=== PATIENT | male | born 1950 | race Caucasian/White ===

== ENCOUNTER 2018-04-05 13:42 | Outpatient (CLI) | payer MEDICARE, BC ==
--- NOTE | 2018-04-05 16:08 | RAD ---
CHEST ONE VIEW: HISTORY: Congenital diverticulum. Reflux. FINDINGS: The exam was originally ordered as a barium swallow. Due to the patient's size and limited mobility, the exam was unable to be performed. At least 20 min utes was spent by radiology department personnel attempting to help and accommodate the patient for t he procedure. The patient was unable to stand on the platform for the exam or climb onto the table. A barium swallow was, therefore, not performed. The cardiac silhouette has a normal appearance. The pulmonary vasculature is accentuated by shallow inspiration. Mild atelectasis at the right lung base. No lobar consolidation, evidence of pneumotho rax, or free subdiaphragmatic gas. IMPRESSION: 1. Mild right basilar atelectasis. 2. Esophagram unable to be performed. POS: [facility]
== END 2018-04-05 13:43 | disposition home or self-care (01) ==
LOC: RAD 13:42
PROVIDERS: ATTEND Internal Medicine
DX: Q39.6 Congenital diverticulum of esophagus (principal); J98.11 Atelectasis
CPT/HCPCS: 71045

== ENCOUNTER 2018-08-15 13:08 | Outpatient (CLI) | payer MEDICARE, BC | END 2018-08-15 13:09 | disposition home or self-care (01) | PROVIDERS: ATTEND Internal Medicine | DX: R13.10 Dysphagia, unspecified (principal); R63.3 Feeding difficulties | CPT/HCPCS: 74230 ==

== ENCOUNTER 2020-06-04 01:08 | Inpatient (IN) | payer MEDICARE, BC ==
[2020-06-04] MEDS ORDERED: Labetalol HCl 100 MG/20 ML VIAL ONE (02:28)
[2020-06-04] MEDS ORDERED: VANCOMYCIN 2 GRAM/400 ML BAG 2 GM in Premix Bag 1 BAG IVPB SCH (03:00)
[2020-06-04] MEDS ORDERED: Cefepime 2 GM VIAL ONE ×2 (03:02→13:10)
[2020-06-04 07:00] LABS: Bacteria/HPF None Seen HPF (None Seen); Bilirubin 1+ (Negative); Blood, Urine 2+ (Negative); Clarity Turbid (Clear); Glucose, Urine (Dipstick) Normal (Negative); Ketone, Urine 10 mg/dL (Negative); Leukocyte Negative Leu/uL (Negative); Nitrite Negative (Negative); Protein, Urine (Dipstick) 50 mg/dL (Neg-Trace); RBC/HPF 21-50 HPF (0-3); Specific Gravity, Urine 1.033 (1.002-1.036); Squamous Epithelial 0-3 HPF (0-3); WBC/HPF 0-3 HPF (0-3); pH, Urine 5.5 (5.0-9.0)
[2020-06-04 07:03] LABS: ALT (SGPT) 15 U/L (8-55); AST (SGOT) 22 U/L (5-34); Albumin 2.9 g/dL (3.4-4.8); Alkaline Phosphatase 149 U/L (40-110); Anion Gap 15 mmol/L (10-20); BUN (Urea Nitrogen) 24 mg/dL (8.4-25.7); Bilirubin, Total 0.9 mg/dL (0.2-1.2); Calc. Creatinine Clearance 0 mL/min (70-130); Calcium 9.1 mg/dL (7.8-10.44); Carbon Dioxide 24 mmol/L (23-31); Chloride 103 mmol/L (98-107); Globulin 3.4 g/dL (2.4-3.5); Glucose 131 mg/dL (83-110); Lipase 18 U/L (8-78); Potassium 3.4 mmol/L (3.5-5.1); Protein, Total 6.3 g/dL (5.8-8.1); Sodium 139 mmol/L (136-145)
[2020-06-04] MEDS ORDERED: Ondansetron PF 4 MG/2 ML Vial IVP PRN (07:03)
[2020-06-04 07:20] LABS: #Eosinphils 0.1 thou/uL (0.0-0.7); #Lymphocytes 0.9 thou/uL (1.20-3.40); #Monocytes 0.9 thou/uL (0.11-0.59); #Neutrophils 12.3 thou/uL (1.40-6.50); %Eosinophils 0.9 % (0.0-10.0); %Lymphocytes 6.3 % (21.0-51.0); %Monocytes 6.3 % (0.0-10.0); %Neutrophils 86.4 % (42.0-75.0); Hemoglobin 13.2 g/dL (14.0-18.0); Mean Corpuscular Hemoglobin 31.4 pg (27.0-31.0); Mean Corpuscular Volume 94.9 fL (78.0-98.0); Mean Platelet Volume 6.5 fL (7.4-10.4); Platelet Count 398 thou/uL (130-400); RBC Distribution Width 13.9 % (11.5-14.5); White Blood Cell (WBC) Count 14.3 thou/uL (4.8-10.8)
[2020-06-04] MEDS ORDERED: Potassium Chloride 20 MEQ TAB PO SCH (07:30)
[2020-06-04 07:39] LABS: #Eosinphils 0.1 thou/uL (0.0-0.7); #Lymphocytes 0.9 thou/uL (1.20-3.40); #Monocytes 1.1 thou/uL (0.11-0.59); #Neutrophils 14.3 thou/uL (1.40-6.50); %Basophils 0.2 % (0.0-1.0); %Eosinophils 0.9 % (0.0-10.0); %Lymphocytes 5.1 % (21.0-51.0); %Monocytes 6.8 % (0.0-10.0); Hemoglobin 13.7 g/dL (14.0-18.0); Mean Corpuscular HGB CONC 33.6 g/dL (32.0-36.0); Mean Corpuscular Hemoglobin 31.5 pg (27.0-31.0); Mean Platelet Volume 6.3 fL (7.4-10.4); Platelet Count 424 thou/uL (130-400); RBC Distribution Width 13.9 % (11.5-14.5); Red Blood Cell (RBC) Count 4.34 mill/uL (4.70-6.10); White Blood Cell (WBC) Count 16.5 thou/uL (4.8-10.8)
[2020-06-04] MEDS ORDERED: cefTRIAXone\\ROCEPHIN 2 GM in Sodium Chloride 0.9% 100 ML IVPB SCH (08:00)
[2020-06-04] MEDS ORDERED: cefTRIAXone\\ROCEPHIN 2 GM VIAL ONE (08:27)
[2020-06-04] MEDS ORDERED: Potassium Chloride 20 MEQ TAB ONE (08:27)
[2020-06-04] MEDS ORDERED: Enoxaparin Sodium 40 MG/0.4 ML SYRINGE ONE (08:27)
[2020-06-04 08:28] LABS: Amphetamine Not Detected (NotDetected); Barbiturates Screen Not Detected (NotDetected); Benzodiazepine Screen Not Detected (NotDetected); Cocaine Metabolite Screen Not Detected (NotDetected); Medtox Control Line Valid? VALID (VALID); Medtox Reader # READER 1; Methadone Not Detected (NotDetected); Methamphetamine Not Detected (NotDetected); Opiate Screen Not Detected (NotDetected); Oxycodone Screen Not Detected (NotDetected); Phencyclidine (PCP) Not Detected (NotDetected); THC/Cannabinoid Screen Not Detected (NotDetected); Tricyclic Screen Not Detected (NotDetected)
[2020-06-04] MEDS ORDERED: Enoxaparin Sodium 40 MG/0.4 ML SYRINGE SC SCH (09:00)
[2020-06-04] MEDS ORDERED: Iopamidol-370 76% 500 ML 1 ML ONE (12:21)
[2020-06-04 12:43] LABS: SARS-CoV-2 PCR by NAA Not Detected (NotDetected)
[2020-06-04] MEDS: Lactated Ringer's 1,000 ML IV SCH ×2 (13:19→19:11)
[2020-06-04] MEDS: Cefepime 2 GM in Sodium Chloride 0.9% 100 ML IVPB SCH ×2 (13:20→20:11)
[2020-06-04 16:49] VITALS: BMI 58.6
[2020-06-04] MEDS: Enoxaparin Sodium 40 MG/0.4 ML SYRINGE SC SCH (20:12)
[2020-06-05] MEDS: Lactated Ringer's 1,000 ML IV SCH (01:05)
[2020-06-05] MEDS: VANCOMYCIN 2 GRAM/400 ML BAG 2 GM in Premix Bag 1 BAG IVPB SCH (02:26)
[2020-06-05] MEDS ORDERED: Ibuprofen 800 MG TAB PO SCH (03:00)
[2020-06-05] MEDS: Cefepime 2 GM in Sodium Chloride 0.9% 100 ML IVPB SCH ×3 (04:51→20:06)
[2020-06-05] MEDS: Enoxaparin Sodium 40 MG/0.4 ML SYRINGE SC SCH ×2 (08:50→20:13)
[2020-06-05] MEDS: Saccharomyces boulardii 250 MG CAP PO SCH (08:50)
[2020-06-05] MEDS ORDERED: Clotrimazole 1% Cream 15 GM TUBE TOP SCH (09:00)
[2020-06-05] MEDS ORDERED: Loratadine 10 MG TAB PO PRN (09:02)
[2020-06-05 09:18] LABS: Anion Gap 10 mmol/L (10-20); BUN (Urea Nitrogen) 17 mg/dL (8.4-25.7); Calc. Creatinine Clearance 240 mL/min (70-130); Carbon Dioxide 26 mmol/L (23-31); Chloride 108 mmol/L (98-107); Glucose 120 mg/dL (83-110); Potassium 3.5 mmol/L (3.5-5.1); Sodium 140 mmol/L (136-145)
[2020-06-05 09:26] LABS: Mean Corpuscular HGB CONC 32.1 g/dL (32.0-36.0); Mean Corpuscular Hemoglobin 30.7 pg (27.0-31.0); Mean Corpuscular Volume 95.7 fL (78.0-98.0); Mean Platelet Volume 6.5 fL (7.4-10.4); Platelet Count 356 thou/uL (130-400); Red Blood Cell (RBC) Count 3.89 mill/uL (4.70-6.10); White Blood Cell (WBC) Count 11.5 thou/uL (4.8-10.8)
[2020-06-05 09:27] LABS: Band 10 % (5-11); Eosinophils 2 % (0-10); Lymphocytes 6 % (21-51); MDiff Complete? YES; Metamyelocyte 1 % (0-0); Monocytes 8 % (0-10); Neutrophil 72 % (42-75); Platelet Morphology Comment Appears Adequate; Reactive Lymphocytes 1 % (0-10)
[2020-06-05] MEDS: Acetaminophen 325 MG TAB PO PRN ×2 (12:24→20:14)
[2020-06-05] MEDS ORDERED: Nystatin Powder 15 GM BOT TOP PRN (13:14)
[2020-06-06] MEDS: Ibuprofen 800 MG TAB PO PRN ×2 (00:27→14:47)
[2020-06-06] MEDS: hydrALAZINE 20 MG/ML VIAL SLOW IVP PRN ×4 (01:37→21:47)
[2020-06-06 02:59] LABS: #Eosinphils 0.6 thou/uL (0.0-0.7); #Lymphocytes 1.1 thou/uL (1.20-3.40); #Monocytes 0.7 thou/uL (0.11-0.59); #Neutrophils 8.2 thou/uL (1.40-6.50); %Basophils 0.1 % (0.0-1.0); %Eosinophils 5.2 % (0.0-10.0); %Lymphocytes 10.6 % (21.0-51.0); %Monocytes 6.7 % (0.0-10.0); %Neutrophils 77.4 % (42.0-75.0); Hemoglobin 12.4 g/dL (14.0-18.0); Mean Corpuscular Hemoglobin 30.7 pg (27.0-31.0); Mean Corpuscular Volume 96.2 fL (78.0-98.0); Mean Platelet Volume 6.2 fL (7.4-10.4); Platelet Count 368 thou/uL (130-400); RBC Distribution Width 14.1 % (11.5-14.5); Red Blood Cell (RBC) Count 4.02 mill/uL (4.70-6.10); White Blood Cell (WBC) Count 10.6 thou/uL (4.8-10.8)
[2020-06-06 03:15] LABS: Vancomycin, Trough 8.4 ug/mL
[2020-06-06 03:22] LABS: Anion Gap 12 mmol/L (10-20); BUN (Urea Nitrogen) 17 mg/dL (8.4-25.7); Calc. Creatinine Clearance 236 mL/min (70-130); Calcium 8.3 mg/dL (7.8-10.44); Carbon Dioxide 22 mmol/L (23-31); Chloride 109 mmol/L (98-107); Glucose 97 mg/dL (83-110); Potassium 3.6 mmol/L (3.5-5.1); Sodium 139 mmol/L (136-145)
[2020-06-06] MEDS: Cefepime 2 GM in Sodium Chloride 0.9% 100 ML IVPB SCH ×3 (03:37→21:46)
[2020-06-06] MEDS: VANCOMYCIN 2 GRAM/400 ML BAG 2 GM in Premix Bag 1 BAG IVPB SCH (04:17)
[2020-06-06] MEDS: Saccharomyces boulardii 250 MG CAP PO SCH (08:41)
[2020-06-06] MEDS ORDERED: Losartan 25 MG TAB PO SCH (09:00)
[2020-06-06] MEDS: Enoxaparin Sodium 40 MG/0.4 ML SYRINGE SC SCH ×2 (10:27→12:35)
[2020-06-06] MEDS: Enoxaparin Sodium 60 MG/0.6 ML SYRINGE SC SCH (21:48)
[2020-06-07] MEDS: hydrALAZINE 20 MG/ML VIAL SLOW IVP PRN ×4 (01:27→16:50)
[2020-06-07 02:35] LABS: Vancomycin, Trough 8.6 ug/mL
[2020-06-07] MEDS: VANCOMYCIN 2 GRAM/400 ML BAG 2 GM in Premix Bag 1 BAG IVPB SCH (02:55)
[2020-06-07] MEDS: Cefepime 2 GM in Sodium Chloride 0.9% 100 ML IVPB SCH ×3 (05:39→19:51)
[2020-06-07 06:31] LABS: Anion Gap 14 mmol/L (10-20); BUN (Urea Nitrogen) 10 mg/dL (8.4-25.7); Calc. Creatinine Clearance 293 mL/min (70-130); Carbon Dioxide 19 mmol/L (23-31); Chloride 107 mmol/L (98-107); Glucose 82 mg/dL (83-110); Potassium 4.1 mmol/L (3.5-5.1); Sodium 136 mmol/L (136-145)
[2020-06-07] MEDS ORDERED: diphenhydrAMINE 25 MG CAP PO PRN (06:35)
[2020-06-07] MEDS: Hydrochlorothiazide 25 MG TAB PO SCH (08:14)
[2020-06-07] MEDS: Saccharomyces boulardii 250 MG CAP PO SCH (08:14)
[2020-06-07] MEDS: Losartan 25 MG TAB PO SCH (08:14)
[2020-06-07] MEDS: Enoxaparin Sodium 60 MG/0.6 ML SYRINGE SC SCH ×2 (08:26→20:02)
[2020-06-07] MEDS ORDERED: Hydrochlorothiazide 25 MG TAB PO SCH (09:00)
[2020-06-07 12:00] LABS: #Eosinphils 0.4 thou/uL (0.0-0.7); #Lymphocytes 0.9 thou/uL (1.20-3.40); #Monocytes 0.6 thou/uL (0.11-0.59); %Basophils 0.4 % (0.0-1.0); %Eosinophils 3.7 % (0.0-10.0); %Lymphocytes 7.1 % (21.0-51.0); %Monocytes 5.1 % (0.0-10.0); %Neutrophils 83.8 % (42.0-75.0); Hemoglobin 13.1 g/dL (14.0-18.0); Mean Corpuscular HGB CONC 32.3 g/dL (32.0-36.0); Mean Corpuscular Hemoglobin 30.5 pg (27.0-31.0); Mean Corpuscular Volume 94.4 fL (78.0-98.0); Mean Platelet Volume 6.3 fL (7.4-10.4); Platelet Count 398 thou/uL (130-400); RBC Distribution Width 14.4 % (11.5-14.5); Red Blood Cell (RBC) Count 4.29 mill/uL (4.70-6.10)
[2020-06-07] MEDS: Ibuprofen 800 MG TAB PO PRN (12:32)
[2020-06-07] MEDS ORDERED: hydrOXYzine 25 MG TAB PO PRN (13:44)
[2020-06-07] MEDS: Vancomycin 1.5 GRAM/300 ML BAG 1.5 GM in Premix Bag 1 BAG IVPB SCH (15:40)
[2020-06-08] MEDS: Vancomycin 1.5 GRAM/300 ML BAG 1.5 GM in Premix Bag 1 BAG IVPB SCH ×2 (03:09→15:19)
[2020-06-08] MEDS: Cefepime 2 GM in Sodium Chloride 0.9% 100 ML IVPB SCH ×3 (04:43→20:16)
[2020-06-08] MEDS: hydrALAZINE 20 MG/ML VIAL SLOW IVP PRN ×2 (04:53→20:24)
[2020-06-08 06:03] LABS: #Eosinphils 0.5 thou/uL (0.0-0.7); #Lymphocytes 0.8 thou/uL (1.20-3.40); #Monocytes 0.7 thou/uL (0.11-0.59); %Basophils 0.1 % (0.0-1.0); %Eosinophils 3.9 % (0.0-10.0); %Monocytes 5.5 % (0.0-10.0); %Neutrophils 83.5 % (42.0-75.0); Hemoglobin 13.6 g/dL (14.0-18.0); Mean Corpuscular HGB CONC 31.9 g/dL (32.0-36.0); Mean Corpuscular Volume 93.9 fL (78.0-98.0); Mean Platelet Volume 6.2 fL (7.4-10.4); Platelet Count 401 thou/uL (130-400); RBC Distribution Width 14.4 % (11.5-14.5); Red Blood Cell (RBC) Count 4.52 mill/uL (4.70-6.10); White Blood Cell (WBC) Count 11.9 thou/uL (4.8-10.8)
[2020-06-08 06:21] LABS: Anion Gap 14 mmol/L (10-20); BUN (Urea Nitrogen) 9 mg/dL (8.4-25.7); Calc. Creatinine Clearance 293 mL/min (70-130); Calcium 8.4 mg/dL (7.8-10.44); Carbon Dioxide 23 mmol/L (23-31); Chloride 101 mmol/L (98-107); Glucose 78 mg/dL (83-110); Potassium 3.9 mmol/L (3.5-5.1); Sodium 134 mmol/L (136-145)
[2020-06-08] MEDS: Enoxaparin Sodium 60 MG/0.6 ML SYRINGE SC SCH ×2 (08:16→20:22)
[2020-06-08] MEDS: Saccharomyces boulardii 250 MG CAP PO SCH (08:16)
[2020-06-08] MEDS: Loratadine 10 MG TAB PO SCH (08:17)
[2020-06-08] MEDS: Hydrochlorothiazide 25 MG TAB PO SCH ×2 (08:17→09:48)
[2020-06-08] MEDS: Losartan 25 MG TAB PO SCH (08:18)
[2020-06-08] MEDS: Enoxaparin Sodium 40 MG/0.4 ML SYRINGE SC SCH (08:20)
[2020-06-08] MEDS ORDERED: Hydrochlorothiazide 25 MG TAB PO SCH (09:45)
[2020-06-08 14:36] LABS: Vancomycin, Trough 17.8 ug/mL
[2020-06-09] MEDS: Vancomycin 1.5 GRAM/300 ML BAG 1.5 GM in Premix Bag 1 BAG IVPB SCH (02:48)
[2020-06-09] MEDS: hydrALAZINE 20 MG/ML VIAL SLOW IVP PRN (04:14)
[2020-06-09] MEDS: Cefepime 2 GM in Sodium Chloride 0.9% 100 ML IVPB SCH ×2 (05:01→11:33)
[2020-06-09 06:03] LABS: #Eosinphils 0.4 thou/uL (0.0-0.7); #Lymphocytes 0.8 thou/uL (1.20-3.40); #Monocytes 0.9 thou/uL (0.11-0.59); #Neutrophils 10.4 thou/uL (1.40-6.50); %Eosinophils 3.3 % (0.0-10.0); %Lymphocytes 6.5 % (21.0-51.0); %Neutrophils 83.2 % (42.0-75.0); Hemoglobin 14.5 g/dL (14.0-18.0); Mean Corpuscular HGB CONC 30.7 g/dL (32.0-36.0); Mean Corpuscular Hemoglobin 29.3 pg (27.0-31.0); Mean Corpuscular Volume 95.4 fL (78.0-98.0); Mean Platelet Volume 6.1 fL (7.4-10.4); Platelet Count 398 thou/uL (130-400); RBC Distribution Width 14.6 % (11.5-14.5); Red Blood Cell (RBC) Count 4.94 mill/uL (4.70-6.10); White Blood Cell (WBC) Count 12.5 thou/uL (4.8-10.8)
[2020-06-09 06:23] LABS: Anion Gap 16 mmol/L (10-20); BUN (Urea Nitrogen) 10 mg/dL (8.4-25.7); Calc. Creatinine Clearance 274 mL/min (70-130); Calcium 8.9 mg/dL (7.8-10.44); Carbon Dioxide 22 mmol/L (23-31); Chloride 100 mmol/L (98-107); Glucose 91 mg/dL (83-110); Sodium 134 mmol/L (136-145)
[2020-06-09] MEDS: Hydrochlorothiazide 25 MG TAB PO SCH (07:45)
[2020-06-09] MEDS: Saccharomyces boulardii 250 MG CAP PO SCH (07:46)
[2020-06-09] MEDS: Loratadine 10 MG TAB PO SCH (07:46)
[2020-06-09] MEDS: Losartan 25 MG TAB PO SCH (07:46)
[2020-06-09] MEDS: Enoxaparin Sodium 60 MG/0.6 ML SYRINGE SC SCH ×2 (07:46→23:28)
[2020-06-09] MEDS: Clindamycin 150 MG CAP PO SCH ×3 (13:23→16:43)
[2020-06-10] MEDS: Clindamycin 150 MG CAP PO SCH ×3 (01:44→14:04)
[2020-06-10] MEDS: Ibuprofen 800 MG TAB PO PRN (05:21)
[2020-06-10 07:32] LABS: #Eosinphils 0.3 thou/uL (0.0-0.7); #Lymphocytes 0.8 thou/uL (1.20-3.40); #Monocytes 0.8 thou/uL (0.11-0.59); #Neutrophils 8.2 thou/uL (1.40-6.50); %Basophils 0.1 % (0.0-1.0); %Eosinophils 3.2 % (0.0-10.0); %Monocytes 7.6 % (0.0-10.0); %Neutrophils 81.1 % (42.0-75.0); Hemoglobin 13.5 g/dL (14.0-18.0); Mean Corpuscular HGB CONC 31.6 g/dL (32.0-36.0); Mean Corpuscular Hemoglobin 29.6 pg (27.0-31.0); Mean Corpuscular Volume 93.4 fL (78.0-98.0); Mean Platelet Volume 6.4 fL (7.4-10.4); Platelet Count 363 thou/uL (130-400); RBC Distribution Width 14.5 % (11.5-14.5); Red Blood Cell (RBC) Count 4.57 mill/uL (4.70-6.10); White Blood Cell (WBC) Count 10.1 thou/uL (4.8-10.8)
[2020-06-10 07:52] LABS: Anion Gap 14 mmol/L (10-20); BUN (Urea Nitrogen) 11 mg/dL (8.4-25.7); Calc. Creatinine Clearance 288 mL/min (70-130); Calcium 8.9 mg/dL (7.8-10.44); Carbon Dioxide 25 mmol/L (23-31); Chloride 98 mmol/L (98-107); Glucose 87 mg/dL (83-110); Potassium 3.6 mmol/L (3.5-5.1); Sodium 133 mmol/L (136-145)
[2020-06-10] MEDS: Hydrochlorothiazide 25 MG TAB PO SCH (09:00)
[2020-06-10] MEDS: Saccharomyces boulardii 250 MG CAP PO SCH (09:00)
[2020-06-10] MEDS ORDERED: Losartan 25 MG TAB PO SCH (09:00)
[2020-06-10] MEDS: Loratadine 10 MG TAB PO SCH (09:01)
[2020-06-10] MEDS: Enoxaparin Sodium 60 MG/0.6 ML SYRINGE SC SCH (09:02)
[2020-06-10 14:11] VITALS: BP 144/56; TEMP 97.7
== END 2020-06-10 15:19 | DRG 602 ==
LOC: ERS 01:08 → INTOOBSV 03:32 → ERHOLD 03:32 → T4-A 15:11 → OBSVTOIN 06-05 14:04
PROVIDERS: ADMIT Family Medicine; ATTEND Family Medicine
DX: L03.311 Cellulitis of abdominal wall (principal); G92 Toxic encephalopathy; L03.115 Cellulitis of right lower limb; L03.116 Cellulitis of left lower limb; Z68.43 Body mass index [BMI] 50.0-59.9, adult; G93.40 Encephalopathy, unspecified; M79.3 Panniculitis, unspecified; L03.314 Cellulitis of groin; L03.315 Cellulitis of perineum; Z20.822 Contact with and (suspected) exposure to COVID-19; I89.0 Lymphedema, not elsewhere classified; E87.6 Hypokalemia; I10 Essential (primary) hypertension; E66.01 Morbid (severe) obesity due to excess calories; G47.33 Obstructive sleep apnea (adult) (pediatric); J30.2 Other seasonal allergic rhinitis; F10.10 Alcohol abuse, uncomplicated
CPT/HCPCS: 36415; 51701; 71045; 74177; 80048; 80053; 80202; 80306; 81001; 82140; 83605; 83690; 84145; 84425; 84443; 85025; 85520; 85652; 87040; 87635; 93923; 96365; 96366; 96367; 96372; 96375; 96376; G0378; J0360; J0692; J0696; J1650; J3370; J3490; Q0163; Q9967; U0003; U0005

== ENCOUNTER 2020-06-23 15:15 | Outpatient (CLI) | payer MEDICARE, BC | END 2020-06-23 15:16 | disposition home or self-care (01) | LOC: RAD 15:15 | PROVIDERS: ATTEND Family Medicine | DX: M54.2 Cervicalgia (principal); R29.898 Other symptoms and signs involving the musculoskeletal system | CPT/HCPCS: 72040 ==

== ENCOUNTER 2022-03-21 09:20 | Emergency (ER) | payer MEDICARE, BC ==
[2022-03-21 11:20] LABS: #Eosinphils 0.2 thou/uL (0.0-0.7); #Lymphocytes 1.1 thou/uL (1.20-3.40); #Monocytes 0.6 thou/uL (0.11-0.59); #Neutrophils 6.3 thou/uL (1.40-6.50); %Basophils 0.4 % (0.0-1.0); %Eosinophils 2.3 % (0.0-10.0); %Lymphocytes 13.2 % (21.0-51.0); %Monocytes 7.3 % (0.0-10.0); %Neutrophils 76.8 % (42.0-75.0); Mean Corpuscular HGB CONC 32.7 g/dL (32.0-36.0); Mean Corpuscular Hemoglobin 32.1 pg (27.0-31.0); Mean Corpuscular Volume 98.2 fl (78.0-98.0); Mean Platelet Volume 7.5 fL (7.4-10.4); Platelet Count 256 10x3/uL (130-400); RBC Distribution Width 11.9 % (11.5-14.5); Red Blood Cell (RBC) Count 4.06 mill/uL (4.70-6.10); White Blood Cell (WBC) Count 8.2 10x3/uL (4.8-10.8)
[2022-03-21 11:37] LABS: ALT (SGPT) 18 U/L (8-55); AST (SGOT) 31 U/L (5-34); Albumin 3.6 g/dL (3.4-4.8); Alkaline Phosphatase 189 U/L (40-110); Anion Gap 14 mmol/L (10-20); BUN (Urea Nitrogen) 29 mg/dL (8.4-25.7); Bilirubin, Total 0.7 mg/dL (0.2-1.2); Calc. Creatinine Clearance 0 mL/min (70-130); Calcium 9.3 mg/dL (7.8-10.44); Carbon Dioxide 28 mmol/L (23-31); Chloride 102 mmol/L (98-107); Estimated GFR 61; Globulin 2.9 g/dL (2.4-3.5); Glucose 100 mg/dL (83-110); Protein, Total 6.5 g/dL (5.8-8.1); Sodium 140 mmol/L (136-145)
[2022-03-21 12:13] LABS: CKMB 6.7 ng/mL (0-6.6)
[2022-03-21] MEDS ORDERED: Aspirin Chewable 81 MG TAB ONE (13:41)
[2022-03-21] MEDS ORDERED: Cefepime 2 GM VIAL ONE (13:41)
[2022-03-21] MEDS ORDERED: Furosemide 40 MG/4 ML VIAL ONE (13:41)
[2022-03-21] MEDS ORDERED: Vancomycin 1 GM/200 ML (FROZEN) BAG ONE (14:13)
== END 2022-03-21 14:38 | disposition short-term general hospital (02) ==
LOC: ERS 09:20
DX: I21.4 Non-ST elevation (NSTEMI) myocardial infarction (principal); L03.119 Cellulitis of unspecified part of limb
CPT/HCPCS: 36415; 71045; 80053; 82553; 83605; 83880; 84484; 85025; 87040; 93005; 93970; J0692; J1650; J1940; J3370-JW

== ENCOUNTER 2022-03-23 12:08 | Inpatient (IN) | payer MEDICARE, BC ==
[2022-03-23] MEDS ORDERED: FLU VACC QS2022-23(65YR UP)/PF 240 MCG/0.7 ML SYRINGE IM ONE (16:00)
[2022-03-23] MEDS ORDERED: Ondansetron PF 4 MG/2 ML Vial IVP PRN (16:23)
[2022-03-23] MEDS ORDERED: Acetaminophen 650 MG Suppository PR PRN (16:23)
[2022-03-23] MEDS ORDERED: Morphine 2 MG/ML VIAL SLOW IVP PRN (16:33)
[2022-03-23] MEDS ORDERED: hydrALAZINE 20 MG/ML VIAL SLOW IVP PRN (16:34)
[2022-03-23] MEDS ORDERED: Heparin 10,000 UNITS/ 10 ML VIAL SLOW IVP SCH ×2 (18:00→18:15)
[2022-03-23] MEDS ORDERED: Heparin 25,000 units/D5W 500 ML IVPB SCH (18:00)
[2022-03-23 18:42] LABS: Platelet Count 216 10x3/uL (130-400)
[2022-03-23 20:46] LABS: Magnesium 2.1 mg/dL (1.6-2.6)
[2022-03-24] MEDS ORDERED: Ziprasidone 20 MG VIAL IM SCH (00:45)
[2022-03-24] MEDS ORDERED: Sterile Water 10 ML VIAL FS PRN (01:00)
[2022-03-24] MEDS ORDERED: diphenhydrAMINE 25 MG CAP PO SCH ×2 (01:30→16:15)
[2022-03-24] MEDS ORDERED: diphenhydrAMINE 25 MG CAP ONE (01:33)
[2022-03-24 04:53] LABS: #Eosinphils 0.2 thou/uL (0.0-0.7); #Lymphocytes 1.1 thou/uL (1.20-3.40); #Monocytes 0.8 thou/uL (0.11-0.59); #Neutrophils 7.1 thou/uL (1.40-6.50); %Basophils 0.1 % (0.0-1.0); %Eosinophils 2.3 % (0.0-10.0); %Monocytes 8.8 % (0.0-10.0); %Neutrophils 76.9 % (42.0-75.0); Hemoglobin 13.2 g/dL (14.0-18.0); Mean Corpuscular HGB CONC 33.7 g/dL (32.0-36.0); Mean Corpuscular Hemoglobin 33.3 pg (27.0-31.0); Mean Corpuscular Volume 98.7 fl (78.0-98.0); Mean Platelet Volume 7.5 fL (7.4-10.4); Platelet Count 226 10x3/uL (130-400); Red Blood Cell (RBC) Count 3.96 mill/uL (4.70-6.10); White Blood Cell (WBC) Count 9.2 10x3/uL (4.8-10.8)
[2022-03-24 04:56] LABS: ALT (SGPT) 19 U/L (8-55); AST (SGOT) 59 U/L (5-34); Albumin 2.9 g/dL (3.4-4.8); Alkaline Phosphatase 161 U/L (40-110); Anion Gap 16 mmol/L (10-20); BUN (Urea Nitrogen) 24 mg/dL (8.4-25.7); Bilirubin, Total 0.4 mg/dL (0.2-1.2); Calc. Creatinine Clearance 109 mL/min (70-130); Calcium 8.4 mg/dL (7.8-10.44); Carbon Dioxide 22 mmol/L (23-31); Chloride 106 mmol/L (98-107); Estimated GFR 68; Globulin 3.3 g/dL (2.4-3.5); Glucose 96 mg/dL (83-110); Potassium 4.6 mmol/L (3.5-5.1); Protein, Total 6.2 g/dL (5.8-8.1); Sodium 139 mmol/L (136-145)
[2022-03-24] MEDS: Communication Order-Pharmacy FS SCH ×2 (07:20→22:49)
[2022-03-24] MEDS ORDERED: hydrALAZINE 20 MG/ML VIAL SLOW IVP PRN (12:42)
[2022-03-24] MEDS ORDERED: Acetaminophen 325 MG TAB PO PRN (12:42)
[2022-03-24] MEDS ORDERED: Morphine 2 MG/ML VIAL SLOW IVP PRN (12:44)
[2022-03-24] MEDS: Doxycycline 100 MG in Sodium Chloride 0.9% 100 ML IVPB SCH (21:44)
[2022-03-24] MEDS ORDERED: Lactated Ringer's 1,000 ML IV SCH (23:59)
[2022-03-25 03:57] LABS: #Eosinphils 0.3 thou/uL (0.0-0.7); #Lymphocytes 1.2 thou/uL (1.20-3.40); #Monocytes 0.9 thou/uL (0.11-0.59); #Neutrophils 6.6 thou/uL (1.40-6.50); %Basophils 0.1 % (0.0-1.0); %Eosinophils 2.8 % (0.0-10.0); %Lymphocytes 13.7 % (21.0-51.0); %Monocytes 10.4 % (0.0-10.0); Hemoglobin 12.7 g/dL (14.0-18.0); Mean Corpuscular HGB CONC 33.4 g/dL (32.0-36.0); Mean Corpuscular Hemoglobin 32.8 pg (27.0-31.0); Mean Platelet Volume 7.9 fL (7.4-10.4); Platelet Count 200 10x3/uL (130-400); RBC Distribution Width 11.9 % (11.5-14.5); Red Blood Cell (RBC) Count 3.88 mill/uL (4.70-6.10); White Blood Cell (WBC) Count 9.1 10x3/uL (4.8-10.8)
[2022-03-25 04:21] LABS: ALT (SGPT) 18 U/L (8-55); AST (SGOT) 45 U/L (5-34); Albumin 2.8 g/dL (3.4-4.8); Alkaline Phosphatase 166 U/L (40-110); Anion Gap 11 mmol/L (10-20); BUN (Urea Nitrogen) 27 mg/dL (8.4-25.7); Bilirubin, Total 0.5 mg/dL (0.2-1.2); Calc. Creatinine Clearance 120 mL/min (70-130); Calcium 8.7 mg/dL (7.8-10.44); Carbon Dioxide 25 mmol/L (23-31); Chloride 105 mmol/L (98-107); Estimated GFR 76; Globulin 2.8 g/dL (2.4-3.5); Glucose 87 mg/dL (83-110); Potassium 3.9 mmol/L (3.5-5.1); Protein, Total 5.6 g/dL (5.8-8.1); Sodium 137 mmol/L (136-145)
[2022-03-25] MEDS ORDERED: Midazolam HCl 5 mg/5 ml Vial ONE (07:35)
[2022-03-25] MEDS ORDERED: Fentanyl 250 MCG/5 ML VIAL ONE (07:35)
[2022-03-25] MEDS ORDERED: EPINEPHrine 1 MG/10 ML Abboject SYRINGE ONE (07:36)
[2022-03-25] MEDS ORDERED: Insulin Regular 300 UNITS/3 ML VIAL ONE (07:36)
[2022-03-25] MEDS ORDERED: Rocuronium Bromide 50 MG/5 ML VIAL ONE (07:36)
[2022-03-25] MEDS ORDERED: Norepinephrine 4 MG/4 ML VIAL ONE (07:36)
[2022-03-25] MEDS ORDERED: Aminocaproic Acid 5 GM/20 ML VIAL ONE (07:36)
[2022-03-25] MEDS ORDERED: Albumin 5% 0 ML ONE (07:45)
[2022-03-25] MEDS: Doxycycline 100 MG in Sodium Chloride 0.9% 100 ML IVPB SCH (09:07)
[2022-03-25] MEDS ORDERED: Heparin 10,000 UNITS/1 ML VIAL 30,000 UNITS in Sodium Chloride 0.9% 1,000 ML FS SCH (10:00)
[2022-03-25] MEDS ORDERED: Lidocaine 1% PF 5 ML VIAL ONE ×2 (10:36→11:21)
[2022-03-25] MEDS ORDERED: Thrombin 5000 UNITS/5 ML VIAL ONE (11:21)
[2022-03-25] MEDS ORDERED: PROPOFOL 200 MG/20 ML VIAL ONE (11:21)
[2022-03-25] MEDS ORDERED: Calcium Chloride 1 GM/10 ML Abboject SYRINGE ONE (11:21)
[2022-03-25] MEDS ORDERED: Protamine Sulfate 250 MG/25 ML VIAL ONE (11:21)
[2022-03-25] MEDS ORDERED: Vancomycin 1 GM VIAL ONE (11:21)
[2022-03-25] MEDS ORDERED: Papaverine 60 MG/2 ML VIAL ONE (11:21)
[2022-03-25] MEDS ORDERED: Heparin 30,000 units/30 ml VIAL ONE (11:21)
[2022-03-25] MEDS ORDERED: Rocuronium Bromide 10 MG/ML (10ML VIAL) ONE (11:21)
[2022-03-25] MEDS ORDERED: CEFAZOLIN 1 GM VIAL ONE (11:32)
[2022-03-25] MEDS ORDERED: Guaifenesin DM 100-10/5 ML UDCUP PO PRN (14:08)
[2022-03-25] MEDS ORDERED: Ondansetron PF 4 MG/2 ML Vial IVP PRN (14:08)
[2022-03-25] MEDS ORDERED: Bisacodyl 5 MG TAB PO PRN (14:08)
[2022-03-25] MEDS ORDERED: Nitroglycerin 50 MG/250 ML BOT 250 ML IVPB PRN (14:08)
[2022-03-25] MEDS ORDERED: Post-Op Insulin Drip Protocol IVPB ONE (14:08)
[2022-03-25] MEDS ORDERED: Hetastarch 6% 500 ML 500 ML IVPB PRN (14:08)
[2022-03-25] MEDS ORDERED: Potassium Chloride 20 MEQ/100 ML PREMIX BAG IVPB PRN (14:08)
[2022-03-25] MEDS ORDERED: Fentanyl 100 MCG/2 ML VIAL SLOW IVP PRN (14:08)
[2022-03-25] MEDS ORDERED: Mag-Al 1200 mg/1200 mg/30 ML UDCUP PO PRN (14:08)
[2022-03-25] MEDS ORDERED: Bisacodyl 10 MG SUPP PR PRN (14:08)
[2022-03-25] MEDS ORDERED: niCARdipine 25 MG in Sodium Chloride 0.9% 250 ML 250 ML IVPB PRN (14:08)
[2022-03-25] MEDS ORDERED: hydrALAZINE 20 MG/ML VIAL SLOW IVP PRN (14:08)
[2022-03-25] MEDS ORDERED: Ipratropium/Albuterol 3 ML NEB NEB PRN (14:08)
[2022-03-25] MEDS ORDERED: Morphine 2 MG/ML VIAL SLOW IVP PRN (14:08)
[2022-03-25] MEDS ORDERED: NOREPINEPHRINE 8 MG/250 ML-D5W 250 ML IVPB PRN (14:08)
[2022-03-25] MEDS ORDERED: Acetaminophen 325 MG TAB PO PRN (14:08)
[2022-03-25] MEDS: Fentanyl 100 MCG/2 ML VIAL SLOW IVP PRN ×2 (14:27→16:25)
[2022-03-25 14:30] LABS: #Eosinphils 0.2 thou/uL (0.0-0.7); #Lymphocytes 1.2 thou/uL (1.20-3.40); #Monocytes 0.9 thou/uL (0.11-0.59); #Neutrophils 13.1 thou/uL (1.40-6.50); %Eosinophils 1.5 % (0.0-10.0); %Lymphocytes 7.8 % (21.0-51.0); %Monocytes 5.8 % (0.0-10.0); %Neutrophils 84.9 % (42.0-75.0); Hemoglobin 12.4 g/dL (14.0-18.0); Mean Corpuscular HGB CONC 32.6 g/dL (32.0-36.0); Mean Corpuscular Hemoglobin 32.1 pg (27.0-31.0); Mean Corpuscular Volume 98.5 fl (78.0-98.0); Mean Platelet Volume 7.7 fL (7.4-10.4); Platelet Count 224 10x3/uL (130-400); RBC Distribution Width 11.8 % (11.5-14.5); Red Blood Cell (RBC) Count 3.87 mill/uL (4.70-6.10); White Blood Cell (WBC) Count 15.4 10x3/uL (4.8-10.8)
[2022-03-25] MEDS ORDERED: HUMULIN R 100 UNITS in Sodium Chloride 0.9% 100 ML IVPB SCH (14:30)
[2022-03-25] MEDS ORDERED: Dextrose 50% Abboject 50 ML SYRINGE SLOW IVP PRN (14:30)
[2022-03-25] MEDS ORDERED: Dextrose 5% in Water 1,000 ML IV PRN (14:30)
[2022-03-25] MEDS ORDERED: Insulin Regular 300 UNITS/3 ML VIAL SC PRN (14:30)
[2022-03-25] MEDS: Ketorolac Tromethamine 30 MG/ML VIAL IVP SCH ×3 (14:32→23:23)
[2022-03-25 14:45] LABS: Actual Bicarbonate (HCO3a) 22.8 mEq/L (22-28); Base Excess (BEa) -2.3 mEq/L (-2.0 to +3.0); CO2 Tension 40.7 mmHg (35.0-45.0); Calcium, Ionized (arterial) 1.12 mmol/L (1.12-1.30); Carboxyhemoglobin (COHb) 0.6 gm% (0.0-3.0); Hemoglobin (Hb) 13.2 g/dL (14.0-18.0); O2 Tension (PaO2), arterial 102.5 mmHg (> 70.0); Puncture Site Arterial Line; pH, Arterial 7.37 (7.35-7.45)
[2022-03-25 14:46] LABS: ALV-art Gradient 131.825 mmHg (0-20)
[2022-03-25 14:48] LABS: INR-International Normal Ratio 1.2; Prothrombin Time 15.5 sec (12.0-14.7)
[2022-03-25 14:49] LABS: PTT 34.3 sec (22.9-36.1)
[2022-03-25 14:54] LABS: Anion Gap 12 mmol/L (10-20); BUN (Urea Nitrogen) 25 mg/dL (8.4-25.7); Calc. Creatinine Clearance 142 mL/min (70-130); Calcium 8.4 mg/dL (7.8-10.44); Carbon Dioxide 22 mmol/L (23-31); Chloride 108 mmol/L (98-107); Estimated GFR 91; Glucose 116 mg/dL (83-110); Potassium 4.1 mmol/L (3.5-5.1); Sodium 138 mmol/L (136-145)
[2022-03-25] MEDS ORDERED: niCARdipine 25 MG/10 ML VIAL ONE (14:54)
[2022-03-25] MEDS: Lactated Ringer's 1,000 ML IV SCH (14:59)
[2022-03-25 17:30] LABS: Actual Bicarbonate (HCO3a) 23.5 mEq/L (22-28); Base Excess (BEa) -2.4 mEq/L (-2.0 to +3.0); CO2 Tension 44.5 mmHg (35.0-45.0); Calcium, Ionized (arterial) 1.08 mmol/L (1.12-1.30); Carboxyhemoglobin (COHb) 0.6 gm% (0.0-3.0); Hemoglobin (Hb) 12.3 g/dL (14.0-18.0); O2 Tension (PaO2), arterial 80.1 mmHg (> 70.0); pH, Arterial 7.34 (7.35-7.45)
[2022-03-25 17:32] LABS: ALV-art Gradient 78.175 mmHg (0-20); Puncture Site Arterial Line
[2022-03-25 20:19] LABS: Hemoglobin 11.6 g/dL (14.0-18.0)
[2022-03-25] MEDS: HYDROcodone/Acetaminophen 5/325 mg Tablet PO PRN (20:20)
[2022-03-25] MEDS: CEFAZOLIN 2 GM in Sodium Chloride 0.9% 100 ML IVPB SCH (20:21)
[2022-03-25] MEDS: Atorvastatin Calcium 10 MG TAB PO SCH (20:21)
[2022-03-25] MEDS: Famotidine/PF 20 mg/2ml Vial SLOW IVP SCH (20:22)
[2022-03-25 20:33] LABS: Potassium 4.1 mmol/L (3.5-5.1)
[2022-03-26] MEDS: CEFAZOLIN 2 GM in Sodium Chloride 0.9% 100 ML IVPB SCH ×2 (03:18→12:00)
[2022-03-26] MEDS: Lactated Ringer's 1,000 ML IV SCH (03:20)
[2022-03-26 04:03] LABS: #Basophils 0.1 thou/uL (0.0-0.2); #Lymphocytes 0.4 thou/uL (1.20-3.40); #Monocytes 0.8 thou/uL (0.11-0.59); #Neutrophils 12.8 thou/uL (1.40-6.50); %Basophils 0.6 % (0.0-1.0); %Eosinophils 0.1 % (0.0-10.0); %Lymphocytes 2.5 % (21.0-51.0); %Monocytes 5.4 % (0.0-10.0); %Neutrophils 91.4 % (42.0-75.0); Hemoglobin 12.5 g/dL (14.0-18.0); Mean Corpuscular HGB CONC 33.3 g/dL (32.0-36.0); Mean Corpuscular Hemoglobin 32.9 pg (27.0-31.0); Mean Corpuscular Volume 98.9 fl (78.0-98.0); Mean Platelet Volume 8.3 fL (7.4-10.4); Platelet Count 210 10x3/uL (130-400); RBC Distribution Width 11.9 % (11.5-14.5); Red Blood Cell (RBC) Count 3.78 mill/uL (4.70-6.10); White Blood Cell (WBC) Count 14.1 10x3/uL (4.8-10.8)
[2022-03-26] MEDS: HYDROcodone/Acetaminophen 5/325 mg Tablet PO PRN ×2 (04:15→17:34)
[2022-03-26 04:32] LABS: Anion Gap 13 mmol/L (10-20); BUN (Urea Nitrogen) 24 mg/dL (8.4-25.7); Calc. Creatinine Clearance 142 mL/min (70-130); Calcium 8.1 mg/dL (7.8-10.44); Carbon Dioxide 23 mmol/L (23-31); Chloride 107 mmol/L (98-107); Estimated GFR 91; Glucose 101 mg/dL (83-110); Potassium 4.1 mmol/L (3.5-5.1); Sodium 139 mmol/L (136-145)
[2022-03-26] MEDS: Ketorolac Tromethamine 30 MG/ML VIAL IVP SCH ×4 (05:35→23:02)
[2022-03-26] MEDS: Clopidogrel Bisulfate 75 MG TAB PO SCH (08:46)
[2022-03-26] MEDS: Aspirin 325 MG TAB PO SCH (08:46)
[2022-03-26] MEDS: Polyethylene Glycol 3350 17 GM Packet PO SCH (08:46)
[2022-03-26] MEDS: Famotidine/PF 20 mg/2ml Vial SLOW IVP SCH (08:48)
[2022-03-26] MEDS: Magnesium 2 GM/50 ML(in water) 2 GM in Premix Bag 1 BAG IVPB SCH ×2 (08:51→10:19)
[2022-03-26] MEDS ORDERED: Insulin Glargine 30 UNITS/0.3 ML VIAL SC PRN (14:16)
[2022-03-26] MEDS: Atorvastatin Calcium 10 MG TAB PO SCH (21:36)
[2022-03-26] MEDS: Famotidine 20 MG TAB PO SCH (21:36)
[2022-03-27 04:40] LABS: Hemoglobin 11.9 g/dL (14.0-18.0); Mean Corpuscular HGB CONC 33.3 g/dL (32.0-36.0); Mean Corpuscular Hemoglobin 33.1 pg (27.0-31.0); Mean Corpuscular Volume 99.3 fl (78.0-98.0); Mean Platelet Volume 8.9 fL (7.4-10.4); Platelet Count 197 10x3/uL (130-400); RBC Distribution Width 12.3 % (11.5-14.5); Red Blood Cell (RBC) Count 3.59 mill/uL (4.70-6.10); White Blood Cell (WBC) Count 13.9 10x3/uL (4.8-10.8)
[2022-03-27 04:58] LABS: Anion Gap 9 mmol/L (10-20); BUN (Urea Nitrogen) 28 mg/dL (8.4-25.7); Calc. Creatinine Clearance 138 mL/min (70-130); Carbon Dioxide 23 mmol/L (23-31); Chloride 102 mmol/L (98-107); Estimated GFR 89; Glucose 112 mg/dL (83-110); Potassium 3.6 mmol/L (3.5-5.1); Sodium 130 mmol/L (136-145)
[2022-03-27 05:12] LABS: Band 6 % (5-11); Eosinophils 1 % (0-10); Lymphocytes 11 % (21-51); MDiff Complete? YES; Monocytes 1 % (0-10); Neutrophil 81 % (42-75)
[2022-03-27] MEDS: Ketorolac Tromethamine 30 MG/ML VIAL IVP SCH ×2 (06:17→12:07)
[2022-03-27] MEDS: Aspirin 325 MG TAB PO SCH (09:14)
[2022-03-27] MEDS: Polyethylene Glycol 3350 17 GM Packet PO SCH (09:14)
[2022-03-27] MEDS: Clopidogrel Bisulfate 75 MG TAB PO SCH (09:15)
[2022-03-27] MEDS: Famotidine 20 MG TAB PO SCH ×2 (09:16→20:55)
[2022-03-27] MEDS ORDERED: Furosemide 40 MG/4 ML VIAL SLOW IVP SCH (13:15)
[2022-03-27] MEDS ORDERED: Mineral Oil ENEMA PR PRN (14:04)
[2022-03-27] MEDS ORDERED: Nitroglycerin 0.4 MG TAB (25 Tab Bottle) SL PRN (14:04)
[2022-03-27] MEDS ORDERED: Furosemide 40 MG TAB PO SCH (14:15)
[2022-03-27] MEDS: Atorvastatin Calcium 10 MG TAB PO SCH (20:55)
[2022-03-27] MEDS ORDERED: Digoxin 0.5 MG/2 ML AMP SLOW IVP SCH (22:45)
[2022-03-27] MEDS ORDERED: Amiodarone 150 MG, Admixture Fee 1 EACH in Dextrose 5% in Water 100 ML IVPB SCH (22:45)
[2022-03-27] MEDS: Amiodarone 450 MG, Admixture Fee 1 EACH in Dextrose 5% in Water 250 ML IVPB SCH (22:48)
[2022-03-28] MEDS: Amiodarone 450 MG, Admixture Fee 1 EACH in Dextrose 5% in Water 250 ML IVPB SCH (09:15)
[2022-03-28] MEDS ORDERED: Amiodarone 200 MG TAB PO SCH (09:30)
[2022-03-28] MEDS: Aspirin 325 MG TAB PO SCH (09:42)
[2022-03-28] MEDS: Clopidogrel Bisulfate 75 MG TAB PO SCH (09:42)
[2022-03-28] MEDS: Famotidine 20 MG TAB PO SCH ×2 (09:43→20:56)
[2022-03-28] MEDS: Furosemide 40 MG TAB PO SCH (09:45)
[2022-03-28] MEDS: Polyethylene Glycol 3350 17 GM Packet PO SCH (09:46)
[2022-03-28] MEDS: Docusate 100 MG CAP PO SCH (14:18)
[2022-03-28] MEDS: Atorvastatin Calcium 20 MG TAB PO SCH (20:56)
[2022-03-28] MEDS: Amiodarone 200 MG TAB PO SCH (20:56)
[2022-03-29] MEDS ORDERED: diphenhydrAMINE 25 MG CAP PO SCH (08:30)
[2022-03-29] MEDS: Aspirin 325 MG TAB PO SCH (09:59)
[2022-03-29] MEDS: Amiodarone 200 MG TAB PO SCH ×2 (10:00→21:23)
[2022-03-29] MEDS: Clopidogrel Bisulfate 75 MG TAB PO SCH (10:01)
[2022-03-29] MEDS: Furosemide 40 MG TAB PO SCH (10:02)
[2022-03-29] MEDS: Famotidine 20 MG TAB PO SCH ×2 (10:02→21:22)
[2022-03-29] MEDS: Polyethylene Glycol 3350 17 GM Packet PO SCH (10:02)
[2022-03-29 11:50] VITALS: BMI 44.2
[2022-03-29] MEDS: Atorvastatin Calcium 20 MG TAB PO SCH (21:23)
[2022-03-30] MEDS ORDERED: hydrALAZINE 20 MG/ML VIAL SLOW IVP PRN (09:48)
[2022-03-30] MEDS ORDERED: diphenhydrAMINE 12.5 MG/5 ML UDCUP PO SCH (10:00)
[2022-03-30] MEDS: Clopidogrel Bisulfate 75 MG TAB PO SCH (12:41)
[2022-03-30] MEDS: Aspirin 325 MG TAB PO SCH (12:42)
[2022-03-30] MEDS: Amiodarone 200 MG TAB PO SCH ×2 (12:44→21:16)
[2022-03-30] MEDS: Docusate 100 MG CAP PO SCH (12:46)
[2022-03-30] MEDS: Furosemide 40 MG TAB PO SCH (12:46)
[2022-03-30] MEDS: Famotidine 20 MG TAB PO SCH ×2 (12:48→21:17)
[2022-03-30] MEDS: Polyethylene Glycol 3350 17 GM Packet PO SCH (12:49)
[2022-03-30] MEDS: HYDROcodone/Acetaminophen 5/325 mg Tablet PO PRN (12:49)
[2022-03-30] MEDS: Atorvastatin Calcium 20 MG TAB PO SCH (21:15)
[2022-03-31] MEDS ORDERED: Lisinopril 5 MG TAB PO SCH (10:00)
[2022-03-31] MEDS: Aspirin 325 MG TAB PO SCH (10:20)
[2022-03-31] MEDS: Amiodarone 200 MG TAB PO SCH ×2 (10:21→19:32)
[2022-03-31] MEDS: Clopidogrel Bisulfate 75 MG TAB PO SCH (10:21)
[2022-03-31] MEDS: Famotidine 20 MG TAB PO SCH ×2 (10:21→19:34)
[2022-03-31] MEDS: Furosemide 40 MG TAB PO SCH (10:22)
[2022-03-31] MEDS: Polyethylene Glycol 3350 17 GM Packet PO SCH (10:22)
[2022-03-31 15:00] LABS: Mean Corpuscular HGB CONC 32.7 g/dL (32.0-36.0); Mean Corpuscular Volume 97.9 fl (78.0-98.0); Mean Platelet Volume 7.3 fL (7.4-10.4); Platelet Count 388 10x3/uL (130-400); Red Blood Cell (RBC) Count 4.05 mill/uL (4.70-6.10); White Blood Cell (WBC) Count 10.1 10x3/uL (4.8-10.8)
[2022-03-31 15:10] LABS: Actual Bicarbonate (HCO3a) 24.5 mEq/L (22-28); Analyzer IN Cardio OR; Base Excess (BEa) 0.4 mEq/L (-2.0 to +3.0); CO2 Tension 37.8 mmHg (35.0-45.0); Calcium, Ionized (arterial) 1.11 mmol/L (1.12-1.30); Hemoglobin (Hb) 12.5 g/dL (14.0-18.0); O2 Tension (PaO2), arterial 295.1 mmHg (> 70.0); Potassium - ABG Lab 3.74 mmol/L (3.70-5.30); pH, Arterial 7.43 (7.35-7.45)
[2022-03-31 15:11] LABS: Actual Bicarbonate (HCO3a) 25.1 mEq/L (22-28); Analyzer IN Cardio OR; Base Excess (BEa) 0.8 mEq/L (-2.0 to +3.0); CO2 Tension 38.9 mmHg (35.0-45.0); Calcium, Ionized (arterial) 1.12 mmol/L (1.12-1.30); Carboxyhemoglobin (COHb) 0.9 gm% (0.0-3.0); Hemoglobin (Hb) 13.1 g/dL (14.0-18.0); O2 Tension (PaO2), arterial 353.4 mmHg (> 70.0); Potassium - ABG Lab 3.98 mmol/L (3.70-5.30); pH, Arterial 7.43 (7.35-7.45)
[2022-03-31 15:11] LABS: Actual Bicarbonate (HCO3a) 23.9 mEq/L (22-28); Analyzer IN Cardio OR; Base Excess (BEa) -0.7 mEq/L (-2.0 to +3.0); CO2 Tension 39.5 mmHg (35.0-45.0); Calcium, Ionized (arterial) 1.11 mmol/L (1.12-1.30); Carboxyhemoglobin (COHb) 0.9 gm% (0.0-3.0); Hemoglobin (Hb) 12.8 g/dL (14.0-18.0); O2 Tension (PaO2), arterial 301.4 mmHg (> 70.0); Potassium - ABG Lab 4.03 mmol/L (3.70-5.30)
[2022-03-31 15:11] LABS: Puncture Site Arterial Line
[2022-03-31 15:12] LABS: Puncture Site Arterial Line
[2022-03-31 15:12] LABS: Puncture Site Arterial Line
[2022-03-31 15:21] LABS: Band 3 % (5-11); Eosinophils 2 % (0-10); Lymphocytes 10 % (21-51); MDiff Complete? YES; Monocytes 7 % (0-10); Neutrophil 77 % (42-75); Platelet Morphology Comment Appears Adequate; Polychromasia SLIGHT = 2-3 cells (100X) (0-2/hpf); Reactive Lymphocytes 1 % (0-10)
[2022-03-31 15:23] LABS: ALT (SGPT) 30 U/L (8-55); AST (SGOT) 41 U/L (5-34); Albumin 2.8 g/dL (3.4-4.8); Alkaline Phosphatase 279 U/L (40-110); Anion Gap 11 mmol/L (10-20); BUN (Urea Nitrogen) 21 mg/dL (8.4-25.7); Bilirubin, Total 0.5 mg/dL (0.2-1.2); Calc. Creatinine Clearance 116 mL/min (70-130); Calcium 8.7 mg/dL (7.8-10.44); Carbon Dioxide 27 mmol/L (23-31); Chloride 106 mmol/L (98-107); Estimated GFR 72; Glucose 125 mg/dL (83-110); Potassium 3.8 mmol/L (3.5-5.1); Protein, Total 5.8 g/dL (5.8-8.1); Sodium 140 mmol/L (136-145)
[2022-03-31 16:16] VITALS: BP 156/71; TEMP 98.9
[2022-03-31] MEDS: HYDROcodone/Acetaminophen 5/325 mg Tablet PO PRN (19:33)
[2022-03-31] MEDS: Atorvastatin Calcium 20 MG TAB PO SCH (19:34)
[2022-04-01] MEDS ORDERED: Lisinopril 5 MG TAB PO SCH (09:00)
== END 2022-03-31 21:29 | DRG 235 ==
LOC: CCU 13:29 → 2NO 03-28 01:49
PROVIDERS: ADMIT Family Medicine; ATTEND Family Medicine
PROC: 8E0ZXY6 Isolation (ICD-10-PCS; 2022-03-23)
PROC: 02100Z9 Bypass Coronary Artery, One Artery from Left Internal Mammary, Open Approach (ICD-10-PCS; principal; 2022-03-25)
DX: I21.4 Non-ST elevation (NSTEMI) myocardial infarction (principal); I50.23 Acute on chronic systolic (congestive) heart failure; U07.1 COVID-19; L03.116 Cellulitis of left lower limb; L03.115 Cellulitis of right lower limb; I11.0 Hypertensive heart disease with heart failure; I25.10 Atherosclerotic heart disease of native coronary artery without angina pectoris; Z91.14 Patient's other noncompliance with medication regimen; Z79.82 Long term (current) use of aspirin; Z79.899 Other long term (current) drug therapy; I87.8 Other specified disorders of veins; I48.0 Paroxysmal atrial fibrillation
CPT/HCPCS: 36415; 36416; 36430; 71045; 80048; 80053; 82805; 83735; 85025; 85610; 85652; 85730; 86140; 86850; 86900; 86901; 93005; 93010; 94002; 97139; C1713; C1751; J0171; J0282; J0690; J1160; J1644; J1650; J1815; J1885; J2250; J2272; J2440; J2704; J2720; J3010; J3370; J3475; J3480; J3486; J3490; J7050; J7070; J7120; P9045; Q0163; S0017; S0028

== ENCOUNTER 2022-04-01 08:11 | Emergency (ER) | payer MEDICARE, BC ==
[2022-04-01] MEDS ORDERED: EPINEPHrine 1 MG/10 ML Abboject SYRINGE ONE (08:21)
[2022-04-01] MEDS ORDERED: Sodium Bicarb 50 MEQ/50 ML Abboject 8.4% SYRINGE ONE (08:21)
[2022-04-01] MEDS ORDERED: Amiodarone 150 MG/3 ML VIAL ONE (08:21)
[2022-04-01] MEDS ORDERED: Calcium Chloride 1 GM/10 ML Abboject SYRINGE ONE (08:21)
== END 2022-04-01 08:26 | disposition expired ==
LOC: ERS 08:11
DX: I46.9 Cardiac arrest, cause unspecified (principal); Z95.1 Presence of aortocoronary bypass graft
CPT/HCPCS: 31500; 92950